=== PATIENT | female | born 1950 | race Caucasian/White ===

== ENCOUNTER 2018-02-07 16:52 | Emergency (ER) | payer MEDICARE, OTHER ==
[2018-02-07] MEDS ORDERED: fentaNYL 100 MCG/2 ML SDV IVPUSH ONE ×3 (17:35→18:03)
--- NOTE | 2018-02-07 18:05 | EDM.PDOC ---
ED HPI GENERAL MEDICAL PROBLEM - General Chief Complaint: Upper Extremity Injury/Pain Stated Complaint: L should pain Time Seen by Provider: 02/07/18 17:10 Source of Information: Reports: Patient History Limitations: Reports: No Limitations - History of Present Illness INITIAL COMMENTS - FREE TEXT/NARRATIVE: Patient presents to the ER with complaints of left shoulder pain. Fell on the ice at home and landed directly on her left shoulder. She does rate her pain at an 8/10. Has limited range of motion due to pain. Denies any numbness or tingling to fingers but admits the pain radiates to her hand. Denies any injury elsewhere. Onset: Today, Sudden Duration: Hour(s): Location: Reports: Upper Extremity, Left Quality: Reports: Sharp, Throbbing Severity: Moderate Improves with: Reports: Rest Worsens with: Reports: Movement Context: Reports: Trauma Associated Symptoms: Reports: No Other Symptoms Left Shoulder Pain Score (Numeric/FACES): 8 - Related Data Allergies Allergy/AdvReac Type Severity Reaction Status Date / Time codeine Allergy Dizziness Verified 10/22/13 13:12 gentamicin [Gentamicin] Allergy Itching Verified 10/22/13 13:13 amoxicillin trihydrate AdvReac Diarrhea Verified 10/22/13 13:11 [From Augmentin] potassium clavulanate AdvReac Diarrhea Verified 10/22/13 13:11 [From Augmentin] Home Meds: Home Meds Aspirin [Halfprin] 81 mg PO DAILY 02/07/18 [History] Dulaglutide [Trulicity] 0.75 mg SUBCUT WEEKLY 02/07/18 [History] Insulin Glarg,Human.Rec.Analog [Lantus] 50 units SUBCUT DAILY 02/07/18 [History] Insulin Lispro [HumaLOG] 34 units SUBCUT TID 02/07/18 [History] Lisinopril 5 mg PO DAILY 02/07/18 [History] Meloxicam 7.5 mg PO BID 02/07/18 [History] Metoprolol Succinate [Toprol XL 50mg] 50 mg PO DAILY 02/07/18 [History] Pantoprazole 20 mg PO DAILY 02/07/18 [History] metFORMIN [Glucophage XR] 1,000 mg PO BID 02/07/18 [History] Past Medical History HEENT History: Reports: Cataract, Hard of Hearing, Impaired Vision Cardiovascular History: Reports: High Cholesterol, Hypertension Respiratory History: Reports: None Gastrointestinal History: Reports: None Genitourinary History: Reports: None HIDE SPREADER History: Reports: None Musculoskeletal History: Reports: Arthritis, Osteoporosis Neurological History: Reports: None Psychiatric History: Reports: None Endocrine/Metabolic History: Reports: Diabetes, Type II, Obesity/BMI 30+ Hematologic History: Reports: None Immunologic History: Reports: None Oncologic (Cancer) History: Reports: Breast Dermatologic History: Reports: None - Infectious Disease History Infectious Disease History: Reports: None - Past Surgical History HEENT Surgical History: Reports: None Cardiovascular Surgical History: Reports: None Respiratory Surgical History: Reports: None GI Surgical History: Reports: Appendectomy, Cholecystectomy, Colonoscopy Female Surgical History: Reports: Mastectomy Endocrine Surgical History: Reports: None Neurological Surgical History: Reports: None Musculoskeletal Surgical History: Reports: None Social & Family History - Tobacco Use Smoking Status *Q: Never Smoker Review of Systems - Review of Systems Review Of Systems: See Below Constitutional: Reports: No Symptoms Eyes: Reports: No Symptoms Ears: Reports: No Symptoms Nose: Reports: No Symptoms Mouth/Throat: Reports: No Symptoms Respiratory: Reports: No Symptoms Cardiovascular: Reports: No Symptoms GI/Abdominal: Reports: No Symptoms Musculoskeletal: Reports: Joint Pain Skin: Reports: No Symptoms Neurological: Reports: No Symptoms ED EXAM, GENERAL - Physical Exam Exam: See Below Exam Limited By: No Limitations General Appearance: Alert, WD/WN, No Apparent Distress Neck: Normal Inspection Respiratory/Chest: No Respiratory Distress, Lungs Clear, Normal Breath Sounds Cardiovascular: Regular Rate, Rhythm, Other (edema in lower extremities) GI/Abdominal: Normal Bowel Sounds, Soft, Non-Tender Extremities: Limited Range of Motion, Other (obvious deformity noted to left shoulder. Tender with palpation. Limited range of motion due to pain.) Neurological: Alert, Oriented Skin Exam: Warm, Dry Course - Vital Signs Last Recorded V/S: Last Vital Signs Temp 96.8 F 02/07/18 16:59 Pulse 93 02/07/18 16:59 Resp 18 02/07/18 16:59 BP 155/93 H 02/07/18 16:59 Pulse Ox 98 02/07/18 16:59 - Orders/Labs/Meds Orders: Active Orders 24 hr Category Date Time Status Shoulder Comp Lt [CR] Stat Exams 02/07/18 17:06 Taken Meds: Medications Discontinued Medications Generic Name Dose Route Start Last Admin Trade Name Jose PRN Reason Stop Dose Admin Fentanyl 25 mcg 02/07/18 17:35 02/07/18 17:38 Sublimaze IVPUSH 02/07/18 17:36 25 mcg ONETIME ONE Administration - Re-Assessments/Exams Free Text/Narrative Re-Assessment/Exam: 02/07/18 1740 Contacted [facility] and spoke with Dr. Marques due to comminuted humeral head fracture/dislocation. Agreed to accept the person in transfer. BLS arranged. Departure - Departure Time of Disposition: 18:10 Disposition: DC/Tfer to Acute Hospital 02 Condition: Fair Clinical Impression: Fracture of humerus Qualifiers: Encounter type: initial encounter Humerus Location: surgical neck Fracture type : closed Fracture alignment: displaced Laterality: left - Discharge Information Referrals: Halley Eden PA [Emergency Provider] - Forms: ED Department Discharge Additional Instructions: 1. Transfer BLS to [facility] ER, accepting physician Dr. Marques. - My Orders Last 24 Hours: My Active Orders 02/07/18 17:06 Shoulder Comp Lt [CR] Stat - Assessment/Plan Last 24 Hours: My Active Orders 02/07/18 17:06 Shoulder Comp Lt [CR] Stat
== END 2018-02-07 18:30 ==
LOC: CC.ED 16:52
DX: S42.212A Unspecified displaced fracture of surgical neck of left humerus, initial encounter for closed fracture (principal); E78.00 Pure hypercholesterolemia, unspecified; I10 Essential (primary) hypertension; E11.9 Type 2 diabetes mellitus without complications; Z88.5 Allergy status to narcotic agent; Z88.8 Allergy status to other drugs, medicaments and biological substances; Z88.1 Allergy status to other antibiotic agents; Z79.82 Long term (current) use of aspirin; Z79.4 Long term (current) use of insulin; Z79.899 Other long term (current) drug therapy; W00.9XXA Unspecified fall due to ice and snow, initial encounter; Y92.009 Unspecified place in unspecified non-institutional (private) residence as the place of occurrence of the external cause
CPT/HCPCS: 73030-LT; 96374; 96376; 99283; J3010

== ENCOUNTER 2025-03-05 07:31 | Day surgery (SDC) | payer MEDICARE, OTHER ==
[2025-03-05] MEDS: Lactated Ringers 1,000 ML IV SCH (07:50)
[2025-03-05] MEDS ORDERED: fentaNYL 50 MCG/ML SDV ONE (08:05)
[2025-03-05] MEDS ORDERED: Flumazenil 0.1 MG/ML 10 ML MDV ONE (08:05)
[2025-03-05] MEDS ORDERED: Propofol 200 MG/20 ML SDV ONE (08:05)
[2025-03-05] MEDS ORDERED: Ketamine 200 MG/20 ML MDV ONE (08:05)
[2025-03-05] MEDS ORDERED: Midazolam 1 MG/ML 2 ML SDV ONE (08:05)
== END 2025-03-05 09:40 | disposition home or self-care (01) ==
LOC: CC.SDS 07:31
PROVIDERS: ATTEND Family Medicine
DX: K57.30 Diverticulosis of large intestine without perforation or abscess without bleeding (principal); K64.9 Unspecified hemorrhoids; I10 Essential (primary) hypertension; E11.40 Type 2 diabetes mellitus with diabetic neuropathy, unspecified; E11.51 Type 2 diabetes mellitus with diabetic peripheral angiopathy without gangrene; K21.9 Gastro-esophageal reflux disease without esophagitis; E78.5 Hyperlipidemia, unspecified; E03.9 Hypothyroidism, unspecified; Z79.4 Long term (current) use of insulin; Z79.890 Hormone replacement therapy; Z79.84 Long term (current) use of oral hypoglycemic drugs; Z79.899 Other long term (current) drug therapy; Z88.0 Allergy status to penicillin; Z88.5 Allergy status to narcotic agent
CPT/HCPCS: 00811; 45380; 88305; 99100; J2250; J2704; J3010; J3490; J7120

== ENCOUNTER 2025-07-19 10:13 | Emergency (ER) | payer MEDICARE, OTHER ==
[2025-07-19] MEDS: Orphenadrine 60 MG/2 ML Inj IM ONE (10:39)
[2025-07-19] MEDS: Ketorolac 30 MG/ML SDV IM ONE (10:39)
[2025-07-19] MEDS: Take Home: Cyclobenzaprine 10 MG Tab, 4 Tab Pack PO ONE (11:43)
[2025-07-19] MEDS: Take Home: Acetaminophen/HYDROcodone 325-5 MG, 2 Tab Pack PO ONE (11:43)
== END 2025-07-19 12:00 | disposition home or self-care (01) ==
LOC: CC.ED 10:13
DX: M54.50 Low back pain, unspecified (principal); E78.00 Pure hypercholesterolemia, unspecified; I10 Essential (primary) hypertension; E11.9 Type 2 diabetes mellitus without complications; Z90.49 Acquired absence of other specified parts of digestive tract; Z88.5 Allergy status to narcotic agent; Z88.0 Allergy status to penicillin; Z88.8 Allergy status to other drugs, medicaments and biological substances; Z79.4 Long term (current) use of insulin; Z79.899 Other long term (current) drug therapy; Z79.84 Long term (current) use of oral hypoglycemic drugs; Z79.82 Long term (current) use of aspirin; Z79.890 Hormone replacement therapy
CPT/HCPCS: 72100; 73502; 96372; 99283; A9270; J1885; J2360; 99284

== ENCOUNTER 2025-11-15 10:10 | Emergency (ER) | payer MEDICARE, OTHER ==
[2025-11-15 10:39] LABS: BASOPHILS ABSOLUTE AUTO 0.01 10^3/uL (0.00-0.50); BASOPHILS PERCENT AUTO 0.1 % (0-1); EOSINOPHILS ABSOLUTE AUTO 0.01 10^3/uL (0.00-1.50); EOSINOPHILS PERCENT AUTO 0.1 % (0-6); IMMATURE GRAN ABSOLUTE AUTO 0.03 10^3/uL (0.00-0.49); IMMATURE GRAN PERCENT AUTO 0.2 % (0.0-4.9); LYMPHOCYTES ABSOLUTE AUTO 2.41 10^3/uL (0.60-5.00); LYMPHOCYTES PERCENT AUTO 17.1 % (24-44); MONOCYTES ABSOLUTE AUTO 1.26 10^3/uL (0.00-1.50); MONOCYTES PERCENT AUTO 9.0 % (0-10); NEUTROPHILS ABSOLUTE AUTO 10.35 x10^3/uL (1.80-8.00); NEUTROPHILS PERCENT AUTO 73.5 % (41-71); PLATELET COUNT,PLT 274 10^3/uL (150-400); RED BLOOD CELL COUNT 5.14 x10^6/uL (4.00-5.50); WHITE BLOOD CELL COUNT,WBC 14.1 10^3/uL (4.0-11.0)
[2025-11-15] MEDS ORDERED: Sodium Chloride 0.9% 10 ML Syringe FLUSH PRN (10:40)
[2025-11-15 10:51] LABS: ALANINE AMINOTRANSFERASE,ALT 15.0 U/L (12-78); ASPARTATE AMNIOTRANSFERASE,AST 14.0 U/L (15-37); BILIRUBIN TOTAL 1.1 mg/dL (0.0-1.0); BLOOD UREA NITROGEN,BUN 23.0 mg/dL (7-18); CARBON DIOXIDE,CO2 22.0 mmol/L (21-32); CHLORIDE,CL 100.0 mEq/L (98-106); CREATININE 1.3 mg/dL (0.6-1.0); EST CRCL DRUG DOSING (CG) 35.8 mL/min; ESTIMATED GFR 43.0 mL/min (>=60); GLUCOSE RANDOM 256.0 mg/dL (75-99); POTASSIUM,K 4.7 mEq/L (3.5-5.0); PROTEIN TOTAL,TP 8.1 g/dL (6.4-8.2); SODIUM,NA 137.0 mEq/L (136-145)
[2025-11-15 11:06] LABS: CORONAVIRUS COVID-19 NAA NEGATIVE (NEGATIVE); INFLUENZA A NAA NEGATIVE (NEGATIVE); INFLUENZA B NAA NEGATIVE (NEGATIVE)
[2025-11-15] MEDS: Iopamidol 755 Mg/ML 100 ML Bottle IVPUSH ONE (11:11)
[2025-11-15 12:20] LABS: APPEARANCE,URINE CLOUDY (CLEAR); GLUCOSE,URINE 500 mg/dL (NEGATIVE); OCCULT BLOOD,URINE TRACE-INTACT (NEGATIVE)
[2025-11-15 12:31] LABS: EPITHELIAL CELLS,URINE MODERATE /HPF (NOT SEEN)
== END 2025-11-15 13:55 | disposition home or self-care (01) ==
LOC: CC.ED 10:10
DX: K29.80 Duodenitis without bleeding (principal); E86.0 Dehydration; I10 Essential (primary) hypertension; M19.90 Unspecified osteoarthritis, unspecified site; E78.00 Pure hypercholesterolemia, unspecified; E66.9 Obesity, unspecified; E11.9 Type 2 diabetes mellitus without complications; Z88.0 Allergy status to penicillin; Z79.4 Long term (current) use of insulin; Z79.82 Long term (current) use of aspirin; Z79.890 Hormone replacement therapy; Z79.899 Other long term (current) drug therapy; Z90.49 Acquired absence of other specified parts of digestive tract; Z68.32 Body mass index [BMI] 32.0-32.9, adult
CPT/HCPCS: 36415; 71046; 74177; 80053; 81001; 83690; 85025; 86140; 87636; 96361; 96374; 99284; 99285; J2470; J7030; Q9967